=== PATIENT | male | born 1990 | race African-American/Black ===

== ENCOUNTER 2016-12-27 14:54 | Emergency (ER) | payer SELFPAY ==
--- NOTE | ~2016-12-27 | CR63 ---
[facility] A Service [facility] RADIOLOGY TEXT RESULTS PATIENT: MAO DAUGHERTY LOCATION: [facility] : 90 UNIT #: [id number] AGE: [address]: Mayda Waldron SEX: M ORDER DR: [id number] [place] [id number] [facility]. [place], [place] [address] [id number] E MR#: [id number] Acc #: [id number] NAME: MAO DAUGHERTY : 1990 SEX: M STUDY DATE/TIME: 12/27/2016 14:52 UNIT: [facility] ROOM: STUDY DESCRIPTION: CR Chest 2 View Attending Physician: Mayda Waldron P.A.-C. Ordering Physician: Mayda Waldron P.A.-C. Primary Care Physician: No Primary Care Physician MEDICAL IMAGING REPORT This report is preliminary unless electronic signature is present EXAM Chest x-ray. HISTORY Cough, congestion, and chest pain for the past 2 days. TECHNIQUE 2 views of the chest were obtained. FINDINGS PA and lateral examination of the chest upright shows a good expansion of the parenchyma with a normal distribution of the pulmonary vascularity. There is no indication of congestion, effusion, infiltrate, tumor, or nodular density. The pleural reflections and diaphragmatic contours are normal. The cardiac silhouette and mediastinal anatomy is within normal limits. IMPRESSION Normal chest. Dictated by... Nate Jennings M.D. THIS IS AN ELECTRONICALLY VERIFIED REPORT Nate Jennings M.D. at 12/27/2016 10:21 PM KINAF/ivette TD: 12/27/2016 16:28 JOB #: [id number] MEDICAL IMAGING REPORT [facility] A Service [facility] RADIOLOGY TEXT RESULTS PATIENT: MAO DAUGHERTY LOCATION: [facility] : 90 UNIT #: [id number] AGE: [address]: Mayda Waldron SEX: M ORDER DR: Page 1 of 1 COPY
== END 2016-12-27 15:23 | disposition home or self-care (01) ==
LOC: CFTX 14:54
DX: J06.9 Acute upper respiratory infection, unspecified (principal); F17.210 Nicotine dependence, cigarettes, uncomplicated; Z87.442 Personal history of urinary calculi
CPT/HCPCS: 71020; 99283

== ENCOUNTER 2017-01-29 21:13 | Emergency (ER) | payer SELFPAY ==
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
== END 2017-01-30 01:17 | disposition home or self-care (01) ==
LOC: CED 21:13
DX: S43.402A Unspecified sprain of left shoulder joint, initial encounter (principal); S76.012A Strain of muscle, fascia and tendon of left hip, initial encounter; S29.011A Strain of muscle and tendon of front wall of thorax, initial encounter; F17.200 Nicotine dependence, unspecified, uncomplicated; Y08.89XA Assault by other specified means, initial encounter; Y92.9 Unspecified place or not applicable
CPT/HCPCS: 71020; 72072; 72100; 73030; 73502; 99284; J1885